=== PATIENT | female | born 2000 | race Caucasian/White ===

== ENCOUNTER 2018-10-04 13:12 | Emergency (ER) | payer OTHER ==
[~2018-10-04] VITALS: Ht 157.5 cm; Wt 57.7 kg
[2018-10-04] MEDS ORDERED: NS 1,000 ML IV ONE (13:30)
[2018-10-04 13:48] LABS: APPEARANCE, URINE MANUAL CLOUDY (CLEAR); COLOR, URINE MANUAL RED (YELLOW)
[2018-10-04 13:49] LABS: BILIRUBIN, URINE MANUAL OBSCURED (NEGATIVE); BLOOD URINE MANUAL POSITIVE (NEGATIVE); GLUCOSE, URINE (UA) MANUAL NEGATIVE (NEGATIVE); KETONE, URINE MANUAL OBSCURED mg/dL (NEGATIVE); LEUKOCYTE ESTERASE, URINE MAN POSITIVE (NEGATIVE); NITRITE, URINE MANUAL OBSCURED (NEGATIVE); PROTEIN, URINE MANUAL 3+ mg/dL (NEGATIVE); UROBILINOGEN, URINE MANUAL OBSCURED mg/dl (NORMAL)
[2018-10-04 13:54] LABS: BASO # 0.1 10^3/uL (0.0-0.2); BASO % 0.8 % (0.0-1.0); EOS % 0.6 % (0.0-3.0); LYMPH # 2.8 10^3/uL (1.5-6.5); LYMPH % 43.3 % (24.0-44.0); MEAN CORPUSCULAR HEMOGLOBIN 30.6 pg (27.0-33.0); MEAN CORPUSCULAR HGB CONC 33.3 g/dl (32.0-36.5); MEAN CORPUSCULAR VOLUME 91.7 fl (80.0-96.0); MONO # 0.5 10^3/uL (0.0-0.8); NEUTROPHILS # 3.1 10^3/uL (1.8-7.7); NEUTROPHILS % 48.1 % (36.0-66.0); PLATELET COUNT, AUTOMATED 328 10^3/uL (150-450); RED BLOOD COUNT 4.58 10^6/uL (4.00-5.40); SPECIFIC GRAVITY,URINE MANUAL 1.027 (1.002-1.035); WHITE BLOOD COUNT 6.4 10^3/uL (4.0-10.0)
[2018-10-04 13:58] LABS: BACTERIA, URINE LARGE AMOUNT; RBC, URINE TNTC /hpf (0-3); SQUAMOUS EPITHELIAL CELL URINE SMALL AMOUNT /hpf (SMALL AMT)
[2018-10-04 13:59] LABS: AMORPHOUS SEDIMENT, URINE SMALL AMOUNT (NEGATIVE); HYALINE CAST, URINE NONE SEEN /lpf (0-1)
[2018-10-04 14:17] LABS: BLOOD UREA NITROGEN 12 MG/DL (7-18); CALCIUM LEVEL 8.7 MG/DL (8.5-10.1); CARBON DIOXIDE LEVEL 27 MEQ/L (21-32); CHLORIDE LEVEL 108 MEQ/L (98-107); CREATININE FOR GFR 0.76 MG/DL (0.55-1.30); GLUCOSE, FASTING 88 MG/DL (70-100); HCG, SERUM QUANTITATIVE < 1.0 MIU/ML; POTASSIUM SERUM 4.2 MEQ/L (3.5-5.1); SODIUM LEVEL 141 MEQ/L (136-145)
[2018-10-04] MEDS ORDERED: MACR100C43 PO (15:03)
--- NOTE | 2018-10-04 15:07 | REP ---
Clinical: Abnormal uterine bleeding . Technique: Transabdominal pelvic ultrasound followed by transvaginal examination for better evaluation of the endometrium and adnexa with color Doppler evaluation of the ovaries. Findings: Bladder is unremarkable and measures 6.1 x 3.8 x 2.1 cm . Normal anteverted uterus measures 8.7 x 4.4 x 5.2 cm . The endometrial complex measures 2.2 mm thickness. No discrete uterine or endometrial abnormalities are appreciated. Incidental Nabothian cysts in the lower uterine segment. Bilateral ovaries are normal in appearance and vascularity without evidence for torsion. Right ovary measures 5.2 x 2.5 x 3.2 cm with 2.9 cm cyst and multiple follicles ; R I = 0.49 . Left ovary measures 3.1 x 2.0 x 2.5 cm with multiple follicles ; R I = 0.64. No pelvic fluid or adnexal mass lesions. Impression: 1. Essentially normal pelvic ultrasound. 2. 2.9 cm right ovarian cyst likely physiologic. No evidence for torsion. Electronically Signed by Stephane Bryan MD 10/04/2018 02:59 P
[2018-10-04 15:10] VITALS: BP 122/75
[2018-10-04] MEDS ORDERED: NITROFURANTOIN (MACROBID) 100 MG CAP PO ONE (15:15)
== END 2018-10-04 15:21 | disposition home or self-care (01) ==
LOC: M ED 13:12
DX: N39.0 Urinary tract infection, site not specified (principal); N92.0 Excessive and frequent menstruation with regular cycle; N83.201 Unspecified ovarian cyst, right side; F33.9 Major depressive disorder, recurrent, unspecified; F41.9 Anxiety disorder, unspecified

== ENCOUNTER 2018-12-29 14:15 | Emergency (ER) | payer OTHER ==
[~2018-12-29] VITALS: Ht 157.5 cm; Wt 59.1 kg
[~2018-12-29 14:15] MED LIST: MACR100C43 PO
[2018-12-29] MEDS ORDERED: LEXA1TAB2 PO (14:28)
[2018-12-29] MEDS ORDERED: LOES1TAB12 PO (14:28)
[2018-12-29 15:01] LABS: BASO # 0.1 10^3/uL (0.0-0.2); BASO % 0.8 % (0.0-1.0); EOS # 0.1 10^3/uL (0.0-0.50); EOS % 1.9 % (0.0-3.0); HEMATOCRIT 42.6 % (36.0-47.0); HEMOGLOBIN 14.3 g/dl (12.0-15.5); LYMPH # 2.2 10^3/uL (1.5-6.5); LYMPH % 35.6 % (24.0-44.0); MEAN CORPUSCULAR HEMOGLOBIN 31.4 pg (27.0-33.0); MEAN CORPUSCULAR HGB CONC 33.6 g/dl (32.0-36.5); MEAN CORPUSCULAR VOLUME 93.4 fl (80.0-96.0); MONO # 0.4 10^3/uL (0.0-0.8); MONO % 5.8 % (0.0-5.0); NEUTROPHILS # 3.5 10^3/uL (1.8-7.7); NEUTROPHILS % 55.7 % (36.0-66.0); PLATELET COUNT, AUTOMATED 290 10^3/uL (150-450); RED BLOOD COUNT 4.56 10^6/uL (4.00-5.40); WHITE BLOOD COUNT 6.2 10^3/uL (4.0-10.0)
[2018-12-29 15:25] LABS: BLOOD UREA NITROGEN 12 MG/DL (7-18); CALCIUM LEVEL 8.7 MG/DL (8.5-10.1); CARBON DIOXIDE LEVEL 25 MEQ/L (21-32); CHLORIDE LEVEL 108 MEQ/L (98-107); GLUCOSE, FASTING 91 MG/DL (70-100); POTASSIUM SERUM 4.7 MEQ/L (3.5-5.1); SODIUM LEVEL 139 MEQ/L (136-145)
--- NOTE | 2018-12-29 17:28 | REPVR ---
EXAM: US Pelvis Complete, Transabdominal and US Pelvis, Transvaginal EXAM DATE/TIME: 12/29/2018 4:50 PM CLINICAL HISTORY: 18 years old, female; Other: Vag bleeding; Additional info: Abnormal bleeding TECHNIQUE: Imaging protocol: Real-time transabdominal and transvaginal pelvic ultrasound (complete) with image documentation. Transvaginal imaging was used for better evaluation of the endometrium and adnexa. COMPARISON: US PELVIC NON-OB COMPLETE 10/04/2018 2:27 PM FINDINGS: Uterus/cervix: Uterus measures 8.1 x 4.3 x 5.6 cm. Incidental cervical nabothian cysts. AP endometrial stripe thickness measures 2 mm. Right adnexa: Right ovary measures 1.9 x 3.8 x 2.5 cm. Positive blood flow. Left adnexa: Left ovary measures 2.2 x 1.9 x 2.6 cm. Positive blood flow. Free fluid: None. Bladder: Normal. IMPRESSION: No significant pelvic abnormality. Electronically signed by: Veronica Barrios On 12/29/2018 17:28:03 PM
[2018-12-29 17:37] VITALS: BP 125/71
== END 2018-12-29 17:45 | disposition home or self-care (01) ==
LOC: M ED 14:15
DX: N92.0 Excessive and frequent menstruation with regular cycle (principal); T43.205A Adverse effect of unspecified antidepressants, initial encounter; X58.XXXA Exposure to other specified factors, initial encounter; Y92.89 Other specified places as the place of occurrence of the external cause; F41.9 Anxiety disorder, unspecified; F33.9 Major depressive disorder, recurrent, unspecified; Z79.899 Other long term (current) drug therapy; Z79.3 Long term (current) use of hormonal contraceptives

== ENCOUNTER 2019-03-01 12:18 | Emergency (ER) | payer OTHER ==
[~2019-03-01] VITALS: Ht 157.5 cm; Wt 64.0 kg
[~2019-03-01 12:18] MED LIST changes: +LEXA1TAB2 PO; +LOES1TAB12 PO
[2019-03-01 12:58] LABS: HEMATOCRIT 42.3 % (36.0-47.0); HEMOGLOBIN 14.2 g/dl (12.0-15.5); MEAN CORPUSCULAR HEMOGLOBIN 30.7 pg (27.0-33.0); MEAN CORPUSCULAR HGB CONC 33.6 g/dl (32.0-36.5); MEAN CORPUSCULAR VOLUME 91.4 fl (80.0-96.0); PLATELET COUNT, AUTOMATED 278 10^3/uL (150-450); RED BLOOD COUNT 4.63 10^6/uL (4.00-5.40); WHITE BLOOD COUNT 7.6 10^3/uL (4.0-10.0)
[2019-03-01 13:21] LABS: BLOOD UREA NITROGEN 9 MG/DL (7-18); CALCIUM LEVEL 9.2 MG/DL (8.5-10.1); CARBON DIOXIDE LEVEL 27 MEQ/L (21-32); CHLORIDE LEVEL 107 MEQ/L (98-107); CREATININE FOR GFR 0.82 MG/DL (0.55-1.30); GLUCOSE, FASTING 110 MG/DL (70-100); HCG, SERUM QUANTITATIVE 185 MIU/ML; POTASSIUM SERUM 4.3 MEQ/L (3.5-5.1); SODIUM LEVEL 139 MEQ/L (136-145)
--- NOTE | 2019-03-01 14:20 | REP ---
Clinical: Pelvic pain. Positive test. Technique: Transabdominal and transvaginal first trimester obstetrical ultrasound with color Doppler evaluation. Findings: Heterogeneous anteverted uterus measures 8.6 x 5.4 x 7.5 cm. Endometrial complex is thickened and decidual reaction is noted. No intrauterine identified. The bilateral ovaries are normal in appearance and vascularity without torsion. Right ovary measures 4.2 x 2.8 x 2.9 cm (RI 0.41). Left ovary measures 3.5 x 1.9 x 1.7 cm (RI 0.48). Small amount of free fluid in the pelvis nonspecific. Impression: Heterogeneous anteverted uterus with presumed decidual reaction but no intrauterine identified. Differential diagnosis includes early as well as spontaneous and less likely ectopic . Correlation with serial HCG levels recommended. Electronically Signed by Stephane Bryan MD 03/01/2019 02:12 P
[2019-03-01 14:57] LABS: CHLAMYDIA DNA AMPLIFICATION NEGATIVE (NEGATIVE); GC DNA AMPLIFICATION NEGATIVE (NEGATIVE)
[2019-03-01 15:17] VITALS: BP 123/65
[2019-03-01] MEDS ORDERED: NITR-67 PO (15:28)
== END 2019-03-01 15:45 | disposition home or self-care (01) ==
LOC: M ED 12:18
DX: N39.0 Urinary tract infection, site not specified (principal)

== ENCOUNTER → 2019-03-03 | Outpatient (CLI) | payer OTHER ==
[~2019-03-03] MED LIST changes: +NITR-67 PO
== END ==
LOC: M LAB 13:41
PROVIDERS: ATTEND Obstetrics & Gynecology
DX: Z34.81 Encounter for supervision of other normal pregnancy, first trimester (principal); Z3A.00 Weeks of gestation of pregnancy not specified

== ENCOUNTER → 2019-05-26 | Outpatient (REF) | payer OTHER ==
[2019-05-26 21:47] LABS: CHLAMYDIA DNA AMPLIFICATION NEGATIVE (NEGATIVE); GC DNA AMPLIFICATION NEGATIVE (NEGATIVE)
== END ==
LOC: M SFHCLERA 10:42
PROVIDERS: ATTEND Nurse Practitioner Family
DX: N89.8 Other specified noninflammatory disorders of vagina (principal)
CPT/HCPCS: 81002; 87086; 87661; G0463

== ENCOUNTER 2019-06-16 15:45 | Emergency (ER) | payer OTHER ==
[~2019-06-16] VITALS: Ht 157.5 cm; Wt 67.1 kg
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
[2019-06-16 18:57] LABS: BASO % 0.2 % (0.0-1.0); EOS # 0.1 10^3/uL (0.0-0.5); EOS % 0.6 % (0.0-3.0); HEMATOCRIT 38.3 % (36.0-47.0); HEMOGLOBIN 12.6 g/dl (12.0-15.5); LYMPH # 2.1 10^3/uL (1.5-5.0); LYMPH % 22.3 % (24.0-44.0); MEAN CORPUSCULAR HEMOGLOBIN 30.7 pg (27.0-33.0); MEAN CORPUSCULAR HGB CONC 32.9 g/dl (32.0-36.5); MEAN CORPUSCULAR VOLUME 93.2 fl (80.0-96.0); MONO # 0.6 10^3/uL (0.0-0.8); MONO % 6.2 % (0.0-5.0); NEUTROPHILS # 6.5 10^3/uL (1.5-8.5); NEUTROPHILS % 70.2 % (36.0-66.0); PLATELET COUNT, AUTOMATED 261 10^3/uL (150-450); RED BLOOD COUNT 4.11 10^6/uL (4.00-5.40); WHITE BLOOD COUNT 9.3 10^3/uL (4.0-10.0)
[2019-06-16 19:17] LABS: ALBUMIN 3.1 GM/DL (3.2-5.2); ALT/SGPT 13 U/L (12-78); BILIRUBIN,DIRECT < 0.1 MG/DL (0.0-0.2); BILIRUBIN,TOTAL 0.3 MG/DL (0.2-1.0); BLOOD UREA NITROGEN 6 MG/DL (7-18); CALCIUM LEVEL 8.4 MG/DL (8.5-10.1); CARBON DIOXIDE LEVEL 23 MEQ/L (21-32); CHLORIDE LEVEL 107 MEQ/L (98-107); CREATININE FOR GFR 0.53 MG/DL (0.55-1.30); GLOMERULAR FILTRATION RATE > 60.0 (>60); GLUCOSE, FASTING 81 MG/DL (70-100); POTASSIUM SERUM 3.9 MEQ/L (3.5-5.1); SODIUM LEVEL 138 MEQ/L (136-145); TOTAL PROTEIN 6.7 GM/DL (6.4-8.2)
[2019-06-16 20:13] VITALS: BP 123/72
== END 2019-06-16 20:15 | disposition home or self-care (01) ==
LOC: M ED 15:45
DX: Z04.1 Encounter for examination and observation following transport accident (principal); R10.9 Unspecified abdominal pain; Z3A.20 20 weeks gestation of pregnancy

== ENCOUNTER → 2021-02-11 | Outpatient (REF) | payer OTHER | LOC: M LAB REF 18:34 | PROVIDERS: ATTEND Physician Assistant | DX: N39.0 Urinary tract infection, site not specified (principal) ==

== ENCOUNTER 2021-07-03 11:22 | Day surgery (SDC) | payer OTHER ==
[~2021-07-03] VITALS: Ht 154.9 cm; Wt 66.4 kg
[~2021-07-03 11:22] MED LIST changes: +ACETAMINOPHEN *IV* 1,000 MG IV ONE; +ARIP1TAB4 PO; +CITA20TA6 PO; +LR 1,000 ML IV ONE; +MELA3TAB30 PO; +TOPI50TA9 PO; +XULA1DIS TOP
[2021-07-03 12:23] LABS: HEMATOCRIT 41.3 % (36.0-47.0); HEMOGLOBIN 13.5 g/dl (12.0-15.5)
[2021-07-03] MEDS ORDERED: KETOROLAC 60MG 2ML VIAL As Ordered ONE (12:32)
[2021-07-03] MEDS ORDERED: dexameTHASONE 4 MG/ML 1ML VIAL (J1100 PER 1MG) As Ordered ONE (12:32)
[2021-07-03] MEDS ORDERED: MIDAZOLAM INJ 2MG/2ML VIAL (J2250 PER 1MG) As Ordered ONE (12:32)
[2021-07-03] MEDS ORDERED: HYDROmorphone HCL 2MG/ML 1ML VIAL As Ordered ONE (12:32)
[2021-07-03] MEDS ORDERED: ONDANSETRON 4MG/2ML VIAL As Ordered ONE (12:33)
[2021-07-03] MEDS ORDERED: propofoL 200 MG/20 ML VIAL As Ordered ONE (12:33)
[2021-07-03] MEDS ORDERED: LIDOCAINE 2% 100MG/5ML SDV (FOR ANES.) As Ordered ONE (12:33)
[2021-07-03 12:44] LABS: BLOOD UREA NITROGEN 10 MG/DL (7-18); CALCIUM LEVEL 8.6 MG/DL (8.5-10.1); CARBON DIOXIDE LEVEL 21 MEQ/L (21-32); CHLORIDE LEVEL 114 MEQ/L (98-107); CREATININE FOR GFR 0.85 MG/DL (0.55-1.30); GLOMERULAR FILTRATION RATE > 60.0 (>60); GLUCOSE, FASTING 91 MG/DL (70-100); SODIUM LEVEL 141 MEQ/L (136-145)
[2021-07-03] MEDS ORDERED: SILVER NITRATE APPLICATOR As Ordered ONE (13:57)
[2021-07-03] MEDS ORDERED: LEVONORGESTREL 52MG (MIRENA) IUD As Ordered ONE (14:05)
[2021-07-03] MEDS ORDERED: LR 1,000 ML IV SCH (15:15)
[2021-07-03] MEDS ORDERED: oxyCODONE 5MG TAB PO PRN (15:15)
[2021-07-03] MEDS ORDERED: ONDANSETRON 4MG/2ML VIAL IV PRN (15:15)
[2021-07-03] MEDS ORDERED: fentaNYL 100 MCG/2 ML INJECTION (J3010) IV PRN (15:15)
[2021-07-03 16:38] VITALS: BP 122/69
== END 2021-07-03 17:00 | disposition home or self-care (01) ==
LOC: M SDC 11:22
PROVIDERS: ATTEND Obstetrics & Gynecology
DX: N93.9 Abnormal uterine and vaginal bleeding, unspecified (principal); N84.0 Polyp of corpus uteri; G43.909 Migraine, unspecified, not intractable, without status migrainosus; F41.9 Anxiety disorder, unspecified; F32.9 Major depressive disorder, single episode, unspecified; Z79.899 Other long term (current) drug therapy
CPT/HCPCS: 36415; 58300; 58558; 80048; 81025; 85014; 85018; 86850; 86900; 86901; 88305; J0131; J1100; J1170; J1885; J2250; J2405; J7298

== ENCOUNTER 2022-04-25 10:51 | Day surgery (SDC) | payer OTHER ==
[~2022-04-25] VITALS: Ht 157.5 cm; Wt 70.7 kg
[~2022-04-25 10:51] MED LIST changes: -ACETAMINOPHEN *IV* 1,000 MG IV ONE; +ACETAMINOPHEN 650 MG SUPP PR ONE; +ATOM25CA7; +FLUO10CA18; +FLUO20CA22; -LR 1,000 ML IV ONE; +NS 1,000 ML IV SCH; +SODIUM CHLORIDE 0.9% 1000ML IV ONE
[2022-04-25] MEDS ORDERED: MIDAZOLAM INJ 2MG/2ML VIAL (J2250 PER 1MG) As Ordered ONE (11:21)
[2022-04-25] MEDS ORDERED: fentaNYL 100 MCG/2 ML INJECTION As Ordered ONE (11:22)
[2022-04-25] MEDS ORDERED: propofoL 200 MG/20 ML VIAL As Ordered ONE (11:22)
[2022-04-25] MEDS ORDERED: ONDANSETRON 4MG 2ML VIAL As Ordered ONE (11:22)
[2022-04-25] MEDS ORDERED: LIDOCAINE 2% 100MG/5ML SDV (FOR ANES.) As Ordered ONE (11:22)
[2022-04-25] MEDS ORDERED: ROCURONIUM BROMIDE 50 MG/5 ML VIAL As Ordered ONE (11:22)
[2022-04-25] MEDS ORDERED: dexameTHASONE 4 MG/ML 1ML VIAL (J1100 PER 1MG) As Ordered ONE (11:22)
[2022-04-25] MEDS ORDERED: LR 1,000 ML IV SCH ×2 (11:35→15:10)
[2022-04-25 11:43] LABS: HEMATOCRIT 39.4 % (36.0-47.0); HEMOGLOBIN 13.3 g/dl (12.0-15.5); MEAN CORPUSCULAR HEMOGLOBIN 30.9 pg (27.0-33.0); MEAN CORPUSCULAR HGB CONC 33.8 g/dl (32.0-36.5); MEAN CORPUSCULAR VOLUME 91.6 fl (80.0-96.0); PLATELET COUNT, AUTOMATED 320 10^3/uL (150-450); WHITE BLOOD COUNT 5.1 10^3/uL (4.0-10.0)
[2022-04-25 12:22] LABS: BLOOD UREA NITROGEN 6 MG/DL (7-18); CALCIUM LEVEL 8.6 MG/DL (8.5-10.1); CARBON DIOXIDE LEVEL 27 MEQ/L (21-32); CHLORIDE LEVEL 107 MEQ/L (98-107); CREATININE FOR GFR 0.74 MG/DL (0.55-1.30); GLOMERULAR FILTRATION RATE > 60.0 (>60); GLUCOSE, FASTING 93 MG/DL (70-100); HCG, SERUM QUANTITATIVE < 1.0 MIU/ML; SODIUM LEVEL 138 MEQ/L (136-145)
[2022-04-25] MEDS ORDERED: ACETAMINOPHEN 650 MG SUPP As Ordered ONE (13:23)
[2022-04-25] MEDS ORDERED: BUPIVACAINE HCL 0.5% 30ML VIAL As Ordered ONE (13:33)
[2022-04-25] MEDS ORDERED: SUGAMMADEX SODIUM 500 MG/5 ML VIAL (BRIDION) As Ordered ONE (14:50)
[2022-04-25] MEDS ORDERED: KETOROLAC 60MG 2ML VIAL As Ordered ONE (15:09)
[2022-04-25] MEDS ORDERED: METOCLOPRAMIDE INJ 10MG/2ML VIAL (J2765 PER 1) IV PRN (15:10)
[2022-04-25] MEDS ORDERED: ONDANSETRON 4MG 2ML VIAL IV PRN (15:10)
[2022-04-25] MEDS ORDERED: HYDROMORPHONE HCL 0.5 MG/ 0.5 ML SYRINGE (J1170 PER 1) IV PRN (15:20)
[2022-04-25] MEDS: fentaNYL 100 MCG/2 ML INJECTION IV PRN ×4 (15:27→15:43)
[2022-04-25] MEDS: oxyCODONE 5MG TAB PO PRN ×2 (15:39→16:25)
[2022-04-25 15:55] VITALS: BP 136/81
== END 2022-04-25 16:54 | disposition home or self-care (01) ==
LOC: M SDC 10:51
PROVIDERS: ATTEND Obstetrics & Gynecology
DX: Z30.2 Encounter for sterilization (principal); F41.9 Anxiety disorder, unspecified; F32.A Depression, unspecified; Z79.899 Other long term (current) drug therapy
CPT/HCPCS: 36415; 58301; 58661; 80048; 84702; 85027; 88300; 88302; J1100; J1885; J2250; J2405; J3010

== ENCOUNTER 2022-12-15 09:14 | Emergency (ER) | payer OTHER ==
[~2022-12-15] VITALS: Ht 154.9 cm; Wt 83.0 kg
[~2022-12-15 09:14] MED LIST changes: -ACETAMINOPHEN 650 MG SUPP PR ONE; -NS 1,000 ML IV SCH; -SODIUM CHLORIDE 0.9% 1000ML IV ONE; +TOPI-254 PO; -TOPI50TA9 PO
[2022-12-15] MEDS ORDERED: OLOPATADINE 0.1% OPHTH SOL 5ML(PATANOL) OU STA (11:31)
[2022-12-15] MEDS ORDERED: ERYT5OIN25 OP (12:55)
[2022-12-15] MEDS ORDERED: ERYTHROMYCIN OPHTH OINT OU ONE (12:55)
[2022-12-15 13:03] VITALS: BP 118/77; TEMP 97.8; O2SAT 98
== END 2022-12-15 13:05 | disposition home or self-care (01) ==
LOC: M ED 09:14
DX: H57.13 Ocular pain, bilateral (principal); H53.143 Visual discomfort, bilateral; Z79.899 Other long term (current) drug therapy